=== PATIENT | male | born 1950 | race Caucasian/White ===

== ENCOUNTER 2020-06-15 12:43 | Outpatient (CLI) | payer OTHER ==
--- NOTE | 2020-06-15 13:00 | RAD ---
2 views chest: 06/15/2020 COMPARISON: None HISTORY: Short of breath/dyspnea FINDINGS: Diffuse increased linear interstitial density with pulmonary hyperinflation noted suggestin g COPD. No focal consolidation or alveolar edema. Multilevel disc space narrowing and anterior osteophyte formation within the thoracic spine. IMPRESSION: Chronic appearing findings as described above. No acute findings.
== END 2020-06-15 12:44 | disposition home or self-care (01) ==
LOC: BICRAD 12:43
PROVIDERS: ATTEND Internal Medicine Pulmonary Disease
DX: R06.00 Dyspnea, unspecified (principal); J84.9 Interstitial pulmonary disease, unspecified
CPT/HCPCS: 71046

== ENCOUNTER 2022-03-01 11:28 | Emergency (ER) | payer OTHER ==
[2022-03-01 12:25] LABS: #Basophils 0.1 thou/uL (0.0-0.2); #Eosinphils 0.4 thou/uL (0.0-0.7); #Lymphocytes 2.4 thou/uL (1.20-3.40); #Monocytes 0.8 thou/uL (0.11-0.59); #Neutrophils 5.6 thou/uL (1.40-6.50); %Basophils 0.6 % (0.0-1.0); %Eosinophils 4.2 % (0.0-10.0); %Lymphocytes 26.3 % (21.0-51.0); %Monocytes 8.4 % (0.0-10.0); %Neutrophils 60.5 % (42.0-75.0); Hemoglobin 15.2 g/dL (14.0-18.0); Mean Corpuscular HGB CONC 32.4 g/dL (32.0-36.0); Mean Corpuscular Hemoglobin 30.5 pg (27.0-31.0); Mean Corpuscular Volume 94.2 fL (78.0-98.0); Mean Platelet Volume 7.5 fL (7.4-10.4); Platelet Count 208 thou/uL (130-400); RBC Distribution Width 13.4 % (11.5-14.5); White Blood Cell (WBC) Count 9.3 thou/uL (4.8-10.8)
[2022-03-01 12:44] LABS: ALT (SGPT) 27 U/L (8-55); AST (SGOT) 17 U/L (5-34); Albumin 3.9 g/dL (3.4-4.8); Alkaline Phosphatase 67 U/L (40-110); Anion Gap 13 mmol/L (10-20); BUN (Urea Nitrogen) 17 mg/dL (8.4-25.7); Bilirubin, Total 0.7 mg/dL (0.2-1.2); Calc. Creatinine Clearance 0 mL/min (70-130); Calcium 9.5 mg/dL (7.8-10.44); Carbon Dioxide 24 mmol/L (23-31); Chloride 106 mmol/L (98-107); Estimated GFR 74; Globulin 3.2 g/dL (2.4-3.5); Glucose 108 mg/dL (83-110); Lipase 20 U/L (8-78); Potassium 4.1 mmol/L (3.5-5.1); Protein, Total 7.1 g/dL (5.8-8.1); Sodium 139 mmol/L (136-145)
[2022-03-01] MEDS ORDERED: Meclizine HCl 25 MG TAB ONE (13:11)
[2022-03-01] MEDS ORDERED: Dextrose 50% Abboject 50 ML SYRINGE ONE (15:31)
== END 2022-03-01 14:55 | disposition home or self-care (01) ==
LOC: ERS 11:28
DX: R55 Syncope and collapse (principal); J44.9 Chronic obstructive pulmonary disease, unspecified
CPT/HCPCS: 36415; 70450; 71045; 80053; 83690; 84484; 85025; 93005; 94760; 96360; J7999

== ENCOUNTER 2022-03-30 16:29 | Emergency (ER) | payer OTHER ==
[2022-03-30 16:55] LABS: #Basophils 0.1 thou/uL (0.0-0.2); #Eosinphils 0.6 thou/uL (0.0-0.7); #Lymphocytes 2.6 thou/uL (1.20-3.40); #Monocytes 0.9 thou/uL (0.11-0.59); #Neutrophils 6.5 thou/uL (1.40-6.50); %Eosinophils 5.7 % (0.0-10.0); %Lymphocytes 24.3 % (21.0-51.0); %Monocytes 8.6 % (0.0-10.0); %Neutrophils 60.4 % (42.0-75.0); Mean Corpuscular HGB CONC 31.9 g/dL (32.0-36.0); Mean Corpuscular Hemoglobin 30.2 pg (27.0-31.0); Mean Corpuscular Volume 94.5 fL (78.0-98.0); Platelet Count 290 thou/uL (130-400); RBC Distribution Width 13.3 % (11.5-14.5); Red Blood Cell (RBC) Count 5.29 mill/uL (4.70-6.10); White Blood Cell (WBC) Count 10.8 thou/uL (4.8-10.8)
[2022-03-30 17:14] LABS: ALT (SGPT) 20 U/L (8-55); AST (SGOT) 17 U/L (5-34); Alkaline Phosphatase 74 U/L (40-110); Anion Gap 14 mmol/L (10-20); BUN (Urea Nitrogen) 16 mg/dL (8.4-25.7); Bilirubin, Total 0.5 mg/dL (0.2-1.2); Calc. Creatinine Clearance 0 mL/min (70-130); Calcium 9.4 mg/dL (7.8-10.44); Carbon Dioxide 26 mmol/L (23-31); Chloride 104 mmol/L (98-107); Estimated GFR 44; Globulin 3.7 g/dL (2.4-3.5); Glucose 146 mg/dL (83-110); Potassium 4.5 mmol/L (3.5-5.1); Protein, Total 7.7 g/dL (5.8-8.1); Sodium 139 mmol/L (136-145)
[2022-03-30 20:31] LABS: Bilirubin Negative (Negative); Blood, Urine Negative (Negative); Clarity Clear (Clear); Glucose, Urine (Dipstick) Normal (Negative); Ketone, Urine Negative (Negative); Leukocyte Negative Leu/uL (Negative); Nitrite Negative (Negative); Protein, Urine (Dipstick) Negative (Neg-Trace); Urobilinogen Normal mg/dL (Less than 2); pH, Urine 5.5 (5.0-9.0)
== END 2022-03-30 22:36 | disposition home or self-care (01) ==
LOC: ERS 16:29
DX: R55 Syncope and collapse (principal); I48.91 Unspecified atrial fibrillation; J44.9 Chronic obstructive pulmonary disease, unspecified; Z79.01 Long term (current) use of anticoagulants
CPT/HCPCS: 36415; 71045; 80053; 81003; 84484; 85025; 93005; 94760

== ENCOUNTER 2022-07-24 08:09 | Inpatient (IN) | payer MEDICARE, OTHER ==
[2022-07-24 09:46] LABS: #Basophils 0.1 thou/uL (0.0-0.2); #Eosinphils 0.4 thou/uL (0.0-0.7); #Lymphocytes 2.4 thou/uL (1.20-3.40); #Monocytes 0.9 thou/uL (0.11-0.59); #Neutrophils 6.3 thou/uL (1.40-6.50); %Eosinophils 3.7 % (0.0-10.0); %Lymphocytes 23.6 % (21.0-51.0); %Monocytes 9.1 % (0.0-10.0); %Neutrophils 62.7 % (42.0-75.0); Hemoglobin 15.5 g/dL (14.0-18.0); Mean Corpuscular HGB CONC 33.7 g/dL (32.0-36.0); Mean Corpuscular Hemoglobin 31.4 pg (27.0-31.0); Mean Corpuscular Volume 93.1 fl (78.0-98.0); Mean Platelet Volume 7.5 fL (7.4-10.4); Platelet Count 230 10x3/uL (130-400); RBC Distribution Width 12.8 % (11.5-14.5); Red Blood Cell (RBC) Count 4.94 mill/uL (4.70-6.10)
[2022-07-24] MEDS ORDERED: Acetaminophen 500 MG TAB ONE (09:48)
[2022-07-24 10:00] LABS: ALT (SGPT) 22 U/L (8-55); AST (SGOT) 16 U/L (5-34); Albumin 3.7 g/dL (3.4-4.8); Alkaline Phosphatase 57 U/L (40-110); Anion Gap 13 mmol/L (10-20); BUN (Urea Nitrogen) 16 mg/dL (8.4-25.7); Bilirubin, Total 0.7 mg/dL (0.2-1.2); Calc. Creatinine Clearance 0 mL/min (70-130); Calcium 9.4 mg/dL (7.8-10.44); Carbon Dioxide 23 mmol/L (23-31); Chloride 106 mmol/L (98-107); Estimated GFR 82; Globulin 3.6 g/dL (2.4-3.5); Glucose 95 mg/dL (83-110); Potassium 3.8 mmol/L (3.5-5.1); Protein, Total 7.3 g/dL (5.8-8.1); Sodium 138 mmol/L (136-145)
[2022-07-24] MEDS ORDERED: Iopamidol-370 76% 500 ML 1 ML ONE (11:28)
[2022-07-24 16:34] VITALS: BMI 29.7
[2022-07-24] MEDS ORDERED: Piperacillin/Tazobactam 3.375 GM in Sodium Chloride 0.9% 100 ML IVPB SCH (16:34)
[2022-07-24] MEDS ORDERED: HumaLOG 300 UNITS/3 ML VIAL SC PRN (16:34)
[2022-07-24] MEDS ORDERED: hydrALAZINE 20 MG/ML VIAL SLOW IVP PRN (16:34)
[2022-07-24] MEDS ORDERED: Dextrose 5% in Water 1,000 ML IV PRN (16:34)
[2022-07-24] MEDS ORDERED: Ondansetron PF 4 MG/2 ML Vial IVP PRN (16:34)
[2022-07-24] MEDS ORDERED: Acetaminophen 325 MG TAB PO PRN (16:34)
[2022-07-24] MEDS ORDERED: HYDROcodone/Acetaminophen 7.5/325 mg Tablet PO PRN (16:34)
[2022-07-24] MEDS ORDERED: Ipratropium/Albuterol 3 ML NEB NEB PRN (16:34)
[2022-07-24] MEDS ORDERED: Morphine 4 MG/ML VIAL SLOW IVP PRN (16:34)
[2022-07-24] MEDS ORDERED: Promethazine HCl 25 MG/ML VIAL IM PRN (16:34)
[2022-07-24] MEDS ORDERED: Dextrose 50% Abboject 50 ML SYRINGE SLOW IVP PRN (16:34)
[2022-07-24] MEDS ORDERED: Morphine 2 MG/ML VIAL SLOW IVP PRN (16:34)
[2022-07-24] MEDS: D5 1/2 NS w/20 mEq KCL 1,000 ML IV SCH (16:51)
[2022-07-24 17:19] LABS: SARS-CoV-2 NAA Rapid Test Not Detected (NotDetected)
[2022-07-24] MEDS: Famotidine 20 MG TAB PO SCH (20:28)
[2022-07-24] MEDS: Piperacillin/Tazobactam 3.375 GM in Sodium Chloride 0.9% 100 ML IVPB SCH (20:33)
[2022-07-24] MEDS: Famotidine/PF 20 mg/2ml Vial SLOW IVP SCH (22:22)
[2022-07-25] MEDS: Piperacillin/Tazobactam 3.375 GM in Sodium Chloride 0.9% 100 ML IVPB SCH ×2 (05:46→14:09)
[2022-07-25] MEDS: D5 1/2 NS w/20 mEq KCL 1,000 ML IV SCH ×2 (05:47→11:06)
[2022-07-25] MEDS ORDERED: fentaNYL PF 100 MCG/2 ML SYRINGE ONE ×3 (08:13→11:13)
[2022-07-25] MEDS ORDERED: SUGAMMADEX SODIUM 200 MG/2 ML VIAL ONE ×2 (08:13→10:55)
[2022-07-25] MEDS ORDERED: Famotidine/PF 20 mg/2ml Vial ONE (08:13)
[2022-07-25] MEDS: Famotidine/PF 20 mg/2ml Vial SLOW IVP SCH (08:30)
[2022-07-25] MEDS ORDERED: Bupivacaine/Epinephrine 0.25% 30 ML VIAL ONE (08:56)
[2022-07-25] MEDS ORDERED: Tamsulosin HCl 0.4 MG CAP PO SCH (09:00)
[2022-07-25] MEDS ORDERED: Ondansetron HCl/PF 4 MG/2 ML Vial IVP PRN (09:35)
[2022-07-25] MEDS: Famotidine 20 MG TAB PO SCH (10:06)
[2022-07-25] MEDS ORDERED: PROPOFOL 200 MG/20 ML VIAL ONE (10:11)
[2022-07-25] MEDS ORDERED: Ondansetron PF 4 MG/2 ML Vial ONE (10:11)
[2022-07-25] MEDS ORDERED: Ketorolac Tromethamine 30 MG/ML VIAL ONE (10:11)
[2022-07-25] MEDS ORDERED: Lidocaine 1% PF 5 ML VIAL ONE (10:11)
[2022-07-25] MEDS ORDERED: Succinylcholine Chloride 100 MG/5 ML SYRINGE FS ONE (10:11)
[2022-07-25] MEDS ORDERED: Dexamethasone 20 MG/5 ML VIAL ONE (10:11)
[2022-07-25] MEDS ORDERED: Metoclopramide HCl 10 MG/2 ML VIAL ONE (10:11)
[2022-07-25] MEDS ORDERED: PHENYLEPHRINE-NS 100 MCG/ML 10 ML SYRINGE ONE (10:11)
[2022-07-25] MEDS ORDERED: NEOSTIGMINE 3 MG/3 ML SYR 3 MG/3 ML SYRINGE ONE (10:11)
[2022-07-25] MEDS ORDERED: Glycopyrrolate 0.2 MG/ML 5 ML SYRINGE ONE (10:11)
[2022-07-25] MEDS ORDERED: Rocuronium Bromide 10 MG/ML (10ML VIAL) ONE (10:11)
[2022-07-25] MEDS ORDERED: D5 1/2 NS w/20 mEq KCL 1,000 ML IV SCH (11:08)
[2022-07-25] MEDS ORDERED: Ondansetron PF 4 MG/2 ML Vial IVP PRN (15:05)
[2022-07-25 16:21] VITALS: BP 119/76; TEMP 98
== END 2022-07-25 16:00 | disposition home or self-care (01) | DRG 342 ==
LOC: ERS 08:09 → ERHOLD 11:37 → SURG A 16:20 → OBSVTOIN 16:34
PROVIDERS: ADMIT Surgery; ATTEND Surgery
PROC: 0DTJ4ZZ Resection of Appendix, Percutaneous Endoscopic Approach (ICD-10-PCS; principal; 2022-07-25)
PROC: 3E033XZ Introduction of Vasopressor into Peripheral Vein, Percutaneous Approach (ICD-10-PCS; 2022-07-25)
DX: K35.80 Unspecified acute appendicitis (principal); K40.30 Unilateral inguinal hernia, with obstruction, without gangrene, not specified as recurrent; J44.9 Chronic obstructive pulmonary disease, unspecified; I48.91 Unspecified atrial fibrillation; Z98.890 Other specified postprocedural states; Z79.01 Long term (current) use of anticoagulants; Z79.82 Long term (current) use of aspirin; Z79.899 Other long term (current) drug therapy; Z20.822 Contact with and (suspected) exposure to COVID-19
CPT/HCPCS: 36416; 74177; 80053; 85025; 88304; 96374; A4649; C1776; G0378; J1100; J1885; J2405; J2543; J2704; J2765; J3480; J3490; Q9967; S0028; U0002

== ENCOUNTER 2022-08-21 12:14 | Emergency (ER) | payer MEDICARE, OTHER ==
[~2022-08-21 12:14] MED LIST: Iopamidol-370 76% 500 ML 1 ML ONE
[2022-08-21] MEDS ORDERED: Ondansetron PF 4 MG/2 ML Vial ONE (12:57)
[2022-08-21] MEDS ORDERED: Morphine 4 MG/ML VIAL ONE (12:57)
[2022-08-21 13:10] LABS: #Basophils 0.1 thou/uL (0.0-0.2); #Eosinphils 0.2 thou/uL (0.0-0.7); #Lymphocytes 2.1 thou/uL (1.20-3.40); #Monocytes 0.8 thou/uL (0.11-0.59); #Neutrophils 7.9 thou/uL (1.40-6.50); %Basophils 0.5 % (0.0-1.0); %Eosinophils 2.2 % (0.0-10.0); %Lymphocytes 18.9 % (21.0-51.0); %Monocytes 7.6 % (0.0-10.0); %Neutrophils 70.9 % (42.0-75.0); Hemoglobin 16.5 g/dL (14.0-18.0); Mean Corpuscular HGB CONC 33.5 g/dL (32.0-36.0); Mean Corpuscular Hemoglobin 31.1 pg (27.0-31.0); Mean Platelet Volume 7.5 fL (7.4-10.4); Platelet Count 223 10x3/uL (130-400); Red Blood Cell (RBC) Count 5.32 mill/uL (4.70-6.10); White Blood Cell (WBC) Count 11.1 10x3/uL (4.8-10.8)
[2022-08-21 13:30] LABS: ALT (SGPT) 23 U/L (8-55); AST (SGOT) 19 U/L (5-34); Alkaline Phosphatase 68 U/L (40-110); Anion Gap 16 mmol/L (10-20); BUN (Urea Nitrogen) 17 mg/dL (8.4-25.7); Bilirubin, Total 1.1 mg/dL (0.2-1.2); Calc. Creatinine Clearance 0 mL/min (70-130); Calcium 9.9 mg/dL (7.8-10.44); Carbon Dioxide 24 mmol/L (23-31); Chloride 102 mmol/L (98-107); Estimated GFR 72; Globulin 3.6 g/dL (2.4-3.5); Glucose 105 mg/dL (83-110); Lipase 12 U/L (8-78); Potassium 3.7 mmol/L (3.5-5.1); Protein, Total 7.6 g/dL (5.8-8.1); Sodium 138 mmol/L (136-145)
[2022-08-21 13:56] LABS: Bilirubin Negative (Negative); Blood, Urine Negative (Negative); Clarity Turbid (Clear); Glucose, Urine (Dipstick) Normal (Negative); Ketone, Urine Negative (Negative); Leukocyte Negative Leu/uL (Negative); Nitrite Negative (Negative); Protein, Urine (Dipstick) Negative (Neg-Trace); Specific Gravity, Urine 1.017 (1.002-1.036); Urobilinogen Normal mg/dL (Less than 2)
== END 2022-08-21 15:41 | disposition home or self-care (01) ==
LOC: ERS 12:14
DX: K56.609 Unspecified intestinal obstruction, unspecified as to partial versus complete obstruction (principal); K40.30 Unilateral inguinal hernia, with obstruction, without gangrene, not specified as recurrent; J44.9 Chronic obstructive pulmonary disease, unspecified; I48.91 Unspecified atrial fibrillation; Z79.01 Long term (current) use of anticoagulants; Z79.899 Other long term (current) drug therapy
CPT/HCPCS: 74177; 80053; 81003; 83605; 83690; 85025; 94760; 96374; 96375; J2270; J2405; Q9967

== ENCOUNTER 2022-09-10 10:13 | Emergency (ER) | payer OTHER ==
[2022-09-10] MEDS ORDERED: fentaNYL 50 mcg/mL 1 mL Vial ONE (12:03)
[2022-09-10 12:15] LABS: #Basophils 0.1 thou/uL (0.0-0.2); #Eosinphils 0.3 thou/uL (0.0-0.7); %Basophils 0.8 % (0.0-1.0); %Eosinophils 2.7 % (0.0-10.0); %Lymphocytes 18.9 % (21.0-51.0); %Monocytes 9.2 % (0.0-10.0); %Neutrophils 68.4 % (42.0-75.0); Hemoglobin 14.8 g/dL (14.0-18.0); Mean Corpuscular HGB CONC 34.3 g/dL (32.0-36.0); Mean Corpuscular Hemoglobin 31.9 pg (27.0-31.0); Mean Corpuscular Volume 92.9 fl (78.0-98.0); Mean Platelet Volume 7.5 fL (7.4-10.4); Platelet Count 201 10x3/uL (130-400); Red Blood Cell (RBC) Count 4.65 mill/uL (4.70-6.10); White Blood Cell (WBC) Count 10.3 10x3/uL (4.8-10.8)
[2022-09-10] MEDS ORDERED: Iopamidol-370 76% 500 ML MDV (1 ML CHARGE) ONE (12:16)
[2022-09-10 12:40] LABS: ALT (SGPT) 22 U/L (8-55); AST (SGOT) 15 U/L (5-34); Albumin 3.6 g/dL (3.4-4.8); Alkaline Phosphatase 62 U/L (40-110); Anion Gap 12 mmol/L (10-20); BUN (Urea Nitrogen) 19 mg/dL (8.4-25.7); Bilirubin, Total 0.6 mg/dL (0.2-1.2); Calc. Creatinine Clearance 0 mL/min (70-130); Calcium 8.7 mg/dL (7.8-10.44); Carbon Dioxide 23 mmol/L (23-31); Chloride 106 mmol/L (98-107); Estimated GFR 88; Globulin 3.3 g/dL (2.4-3.5); Glucose 96 mg/dL (83-110); Potassium 3.7 mmol/L (3.5-5.1); Protein, Total 6.9 g/dL (5.8-8.1); Sodium 137 mmol/L (136-145)
== END 2022-09-10 14:05 | disposition home or self-care (01) ==
LOC: ERS 10:13
DX: K40.30 Unilateral inguinal hernia, with obstruction, without gangrene, not specified as recurrent (principal); K57.92 Diverticulitis of intestine, part unspecified, without perforation or abscess without bleeding; J44.9 Chronic obstructive pulmonary disease, unspecified; Z79.01 Long term (current) use of anticoagulants
CPT/HCPCS: 74177; 80053; 85025; 96374; J3010; Q9967

== ENCOUNTER 2022-09-24 17:10 | Emergency (ER) | payer MEDICARE, OTHER | END 2022-09-24 18:21 | disposition home or self-care (01) | LOC: ERS 17:10 | DX: K40.90 Unilateral inguinal hernia, without obstruction or gangrene, not specified as recurrent (principal); J44.9 Chronic obstructive pulmonary disease, unspecified | CPT/HCPCS: 99283 ==

== ENCOUNTER 2022-09-26 09:38 | Day surgery (SDC) | payer OTHER ==
[2022-09-12 10:23] VITALS: BMI 30.2
[2022-09-26] MEDS ORDERED: Bupivacaine/Epinephrine 0.25% 30 ML VIAL ONE (11:27)
[2022-09-26] MEDS ORDERED: Bupivacaine PF 0.5% 30 ML VIAL ONE (11:27)
[2022-09-26] MEDS ORDERED: Fentanyl 250 MCG/5 ML VIAL ONE (11:34)
[2022-09-26] MEDS ORDERED: Sodium Chloride 0.9% 100 ML ONE (11:54)
[2022-09-26] MEDS ORDERED: CEFAZOLIN 2 GM VIAL ONE (11:54)
[2022-09-26] MEDS ORDERED: fentaNYL PF 100 MCG/2 ML SYRINGE ONE (12:04)
[2022-09-26] MEDS ORDERED: Lidocaine 1% PF 5 ML VIAL ONE (12:09)
[2022-09-26] MEDS ORDERED: ePHEDrine Sulfate 50 MG/10 ML VIAL ONE (12:09)
[2022-09-26] MEDS ORDERED: PROPOFOL 200 MG/20 ML VIAL ONE (12:09)
[2022-09-26] MEDS ORDERED: fentaNYL 50 mcg/mL 1 mL Vial ONE ×3 (13:15→13:38)
[2022-09-26] MEDS ORDERED: HYDROcodone/Acetaminophen 5/325 mg Tablet ONE (14:37)
== END 2022-09-26 15:10 | disposition home or self-care (01) ==
LOC: SDC 09:38
PROVIDERS: ATTEND Surgery
PROC: 0YU50JZ Supplement Right Inguinal Region with Synthetic Substitute, Open Approach (ICD-10-PCS; principal; 2022-09-26)
DX: K40.90 Unilateral inguinal hernia, without obstruction or gangrene, not specified as recurrent (principal); J44.9 Chronic obstructive pulmonary disease, unspecified; Z79.01 Long term (current) use of anticoagulants; Z79.82 Long term (current) use of aspirin; Z79.899 Other long term (current) drug therapy; Z87.891 Personal history of nicotine dependence
CPT/HCPCS: C1781; J2704; J3010; J3490; S0020

== ENCOUNTER 2022-10-13 16:45 | Emergency (ER) | payer MEDICARE, OTHER ==
[2022-10-13] MEDS ORDERED: Morphine 4 MG/ML VIAL ONE (19:15)
[2022-10-13] MEDS ORDERED: Ondansetron ODT 4 MG TAB ONE (19:15)
== END 2022-10-13 21:16 | disposition home or self-care (01) ==
LOC: ERS 16:45
DX: S30.0XXA Contusion of lower back and pelvis, initial encounter (principal); K40.90 Unilateral inguinal hernia, without obstruction or gangrene, not specified as recurrent; M54.50 Low back pain, unspecified; J44.9 Chronic obstructive pulmonary disease, unspecified; W18.30XA Fall on same level, unspecified, initial encounter; Z79.01 Long term (current) use of anticoagulants
CPT/HCPCS: 72131; 72192; 96372; J2270; Q0162

== ENCOUNTER 2023-03-27 08:42 | Day surgery (SDC) | payer OTHER ==
[2023-03-24 11:08] VITALS: BMI 29.3
[2023-03-24 12:14] LABS: Hematocrit 48.2 % (38.8-50.0); Hemoglobin 15.3 g/dL (13.5-17.5); Mean Corpuscular HGB CONC 31.7 g/dL (32.0-36.0); Mean Corpuscular Hemoglobin 29.7 pg (27.0-33.0); Mean Corpuscular Volume 93.6 fl (81.2-95.1); Mean Platelet Volume 9.5 fl (7.4-10.4); Platelet Count 287 10x3/uL (150-450); RBC Distribution Width 14.2 % (11.5-14.5); Red Blood Cell (RBC) Count 5.15 10x6/uL (4.32-5.72); White Blood Cell (WBC) Count 10.1 10x3/uL (3.5-10.5)
[2023-03-24 12:33] LABS: Anion Gap 14 mmol/L (10-20); BUN (Urea Nitrogen) 19 mg/dL (8.4-25.7); Calc. Creatinine Clearance 97 mL/min (70-130); Calcium 9.4 mg/dL (7.8-10.44); Carbon Dioxide 24 mmol/L (23-31); Chloride 105 mmol/L (98-107); Estimated GFR 78; Glucose 115 mg/dL (83-110); Potassium 4.9 mmol/L (3.5-5.1); Sodium 138 mmol/L (136-145)
[2023-03-24 12:36] LABS: PTT 31.6 sec (22.0-33.0); Prothrombin Time 10.6 sec (9.5-12.1)
[2023-03-27] MEDS ORDERED: Isoproterenol 0.2 MG/1 ML AMP ONE (09:54)
[2023-03-27] MEDS ORDERED: Heparin 25,000 units/D5W 500 ML ONE (09:54)
[2023-03-27] MEDS ORDERED: Heparin 10,000 UNITS/ 10 ML VIAL ONE (09:54)
[2023-03-27] MEDS ORDERED: Protamine Sulfate 50 MG/5 ML VIAL ONE (09:54)
[2023-03-27] MEDS ORDERED: Phenylephrine 10 MG/ML VIAL ONE (12:45)
[2023-03-27] MEDS ORDERED: fentaNYL PF 100 MCG/2 ML SYRINGE ONE (12:45)
[2023-03-27] MEDS ORDERED: PROPOFOL 200 MG/20 ML VIAL ONE (12:55)
[2023-03-27] MEDS ORDERED: Ondansetron PF 4 MG/2 ML Vial ONE (12:55)
[2023-03-27] MEDS ORDERED: Rocuronium Bromide 10 MG/ML (10ML VIAL) ONE (12:55)
[2023-03-27] MEDS ORDERED: Sevoflurane 250 ML INH ANEST BOTTLE ONE (15:31)
[2023-03-27] MEDS ORDERED: fentaNYL 50 mcg/mL 1 mL Vial ONE (15:56)
[2023-03-27] MEDS ORDERED: Midazolam HCl 2 mg/2 ml Vial ONE (16:00)
== END 2023-03-27 19:58 | disposition home or self-care (01) ==
LOC: SDC 08:42
PROVIDERS: ATTEND Internal Medicine Cardiovascular Disease
PROC: 4A027FZ Measurement of Cardiac Rhythm, Via Natural or Artificial Opening (ICD-10-PCS; principal; 2023-03-27)
DX: I48.0 Paroxysmal atrial fibrillation (principal); I95.1 Orthostatic hypotension; I48.20 Chronic atrial fibrillation, unspecified; J44.9 Chronic obstructive pulmonary disease, unspecified; Z88.5 Allergy status to narcotic agent; Z79.82 Long term (current) use of aspirin; Z79.01 Long term (current) use of anticoagulants; Z98.890 Other specified postprocedural states; Z79.899 Other long term (current) drug therapy
CPT/HCPCS: 80048; 85027; 85347; 85610; 85730; 93005; 93622; 93623; 93655; 93656; 93657; C1732; C1759; C1760; C1894; J1644; J2250; J2370; J2405; J2704; J2720; J3010

== ENCOUNTER 2023-07-05 08:52 | Outpatient (CLI) | payer OTHER | END 2023-07-05 08:53 | disposition home or self-care (01) | LOC: CT 08:52 | PROVIDERS: ATTEND Internal Medicine | DX: K40.91 Unilateral inguinal hernia, without obstruction or gangrene, recurrent (principal); K76.0 Fatty (change of) liver, not elsewhere classified; I70.0 Atherosclerosis of aorta; K57.30 Diverticulosis of large intestine without perforation or abscess without bleeding | CPT/HCPCS: 74176 ==

== ENCOUNTER 2023-08-01 12:56 | Emergency (ER) | payer OTHER | END 2023-08-01 13:34 | disposition home or self-care (01) | LOC: ERS 12:56 | DX: R10.30 Lower abdominal pain, unspecified (principal); B35.6 Tinea cruris; J44.9 Chronic obstructive pulmonary disease, unspecified; I48.91 Unspecified atrial fibrillation; Z55.6 Problems related to health literacy; Z79.01 Long term (current) use of anticoagulants | CPT/HCPCS: 99283 ==